=== PATIENT | female | born 1955 | race Caucasian/White ===

== ENCOUNTER 2019-10-16 15:15 | Emergency (ER) | payer MEDICARE ==
[~2019-10-16] VITALS: Ht 165.1 cm; Wt 77.1 kg
--- NOTE | 2019-10-16 15:28 | NUR ---
Dr. Poole at bedside for MSE
[2019-10-16] MEDS ORDERED: IV NORMAL SALINE 1000 ML BAG IV ONE (15:30)
[2019-10-16] MEDS ORDERED: OXYCODONE/APAP 5-325 MG TABLET PO ONE (16:00)
[2019-10-16] MEDS ORDERED: OXYCODONE/APAP 5-325 MG TABLET ONE (16:00)
--- NOTE | 2019-10-16 16:45 | NUR ---
IV removed. Catheter intact and site benign. Pressure and 4x4 gauze applied to site. No bleeding noted. Patient discharged to home in stable condition. Written and verbal after care instructions given. Patient verbalizes understanding of instructions. Stressed follow up or return to ER for worsening s/s. Patient ambulating with steady gait. NAD noted
[2019-10-16 17:03] VITALS: BP 124/63
== END 2019-10-16 16:45 | disposition home or self-care (01) ==
LOC: ER 15:17
DX: S42.252A Displaced fracture of greater tuberosity of left humerus, initial encounter for closed fracture (principal); W18.39XA Other fall on same level, initial encounter; Y93.89 Activity, other specified; Y92.531 Health care provider office as the place of occurrence of the external cause; Y99.8 Other external cause status; C25.9 Malignant neoplasm of pancreas, unspecified; Z79.899 Other long term (current) drug therapy; H35.30 Unspecified macular degeneration; G62.0 Drug-induced polyneuropathy; T45.1X5A Adverse effect of antineoplastic and immunosuppressive drugs, initial encounter
CPT/HCPCS: 73060; A4663; J7030